=== PATIENT | male | born 1965 | race Caucasian/White ===

== ENCOUNTER 2022-12-25 16:05 | Inpatient (IN) | payer MEDICARE ==
[2022-12-25 16:24] VITALS: BMI 22.2
[2022-12-25] MEDS ORDERED: FLU VACC QS2023-24(6MOS UP)/PF 60 MCG/0.5 ML SYRINGE IM ONE (17:15)
[2022-12-25] MEDS ORDERED: Albuterol 200 PUFF (6.7GM INHALER) INH PRN (17:51)
[2022-12-25] MEDS ORDERED: Sodium Bicarbonate Tab 325 MG TAB PER TUBE PRN (19:30)
[2022-12-25] MEDS ORDERED: Pancrelipase DR 12,000 1 CAP FS PRN (19:30)
[2022-12-25] MEDS ORDERED: Budesonide 0.5 MG/2 ML NEB NEB SCH (21:00)
[2022-12-25] MEDS ORDERED: Piperacillin/Tazobactam 3.375 GM VIAL IVPB SCH (21:00)
[2022-12-25] MEDS ORDERED: TERAZOSIN HCL 1 MG PER TUBE SCH (21:00)
[2022-12-25] MEDS: Artificial Tear Sol 15 ML BOT EA EYE SCH (21:10)
[2022-12-25] MEDS: Piperacillin/Tazobactam 3.375 GM in Sodium Chloride 0.9% 100 ML IVPB SCH (21:10)
[2022-12-25] MEDS: LACOSAMIDE 10 MG/ML PER TUBE SCH (21:11)
[2022-12-25] MEDS: CIPROFLOXACIN 0.2% EA EAR SCH (21:11)
[2022-12-25] MEDS: oxyCODONE 5 MG TAB PER TUBE SCH (21:11)
[2022-12-25] MEDS: Budesonide 0.5 MG/2 ML NEB NEB SCH (21:11)
[2022-12-25] MEDS: Melatonin 3 MG TAB PER TUBE SCH (21:11)
[2022-12-25] MEDS: Venlafaxine HCl 37.5 MG TAB PER TUBE SCH (21:12)
[2022-12-25] MEDS: Baclofen 10 MG TAB PER TUBE SCH (21:12)
[2022-12-25] MEDS: Metoclopramide 10 MG/10 ML UDCUP PER TUBE SCH (21:13)
[2022-12-25] MEDS: levETIRAcetam 500 mg/5 ml Oral Solution PER TUBE SCH (21:14)
[2022-12-26] MEDS: oxyCODONE 5 MG TAB PER TUBE SCH ×6 (01:00→20:35)
[2022-12-26] MEDS: Acetaminophen 325 MG TAB PER TUBE SCH ×4 (01:00→16:59)
[2022-12-26] MEDS: Piperacillin/Tazobactam 3.375 GM in Sodium Chloride 0.9% 100 ML IVPB SCH ×3 (05:13→20:37)
[2022-12-26] MEDS: levETIRAcetam 500 mg/5 ml Oral Solution PER TUBE SCH ×2 (08:27→20:37)
[2022-12-26] MEDS: Artificial Tear Sol 15 ML BOT EA EYE SCH ×2 (08:28→20:36)
[2022-12-26] MEDS: Baclofen 10 MG TAB PER TUBE SCH ×2 (08:28→20:36)
[2022-12-26] MEDS: Tamsulosin HCl 0.4 MG CAP PO SCH (08:28)
[2022-12-26] MEDS: Lansoprazole 3 MG/ML ORAL SUSPENSION PER TUBE SCH (08:28)
[2022-12-26] MEDS: Metoclopramide 10 MG/10 ML UDCUP PER TUBE SCH ×4 (08:28→20:36)
[2022-12-26] MEDS: Venlafaxine HCl 37.5 MG TAB PER TUBE SCH ×2 (08:28→20:35)
[2022-12-26] MEDS: Budesonide 0.5 MG/2 ML NEB NEB SCH ×2 (08:28→20:34)
[2022-12-26] MEDS: CIPROFLOXACIN 0.2% EA EAR SCH (08:30)
[2022-12-26] MEDS: LACOSAMIDE 10 MG/ML PER TUBE SCH ×2 (08:30→20:37)
[2022-12-26] MEDS ORDERED: Lorazepam 2 MG/ML VIAL SLOW IVP PRN (10:24)
[2022-12-26] MEDS ORDERED: Ciprofloxacin 0.3% Ophth Soln 2.5 ml Bottle EA EAR SCH (11:00)
[2022-12-26] MEDS ORDERED: LACOSAMIDE 10 MG/ML PER TUBE SCH (13:45)
[2022-12-26] MEDS: Melatonin 3 MG TAB PER TUBE SCH (20:35)
[2022-12-26] MEDS: Terazosin HCl 1 MG CAP PER TUBE SCH (20:35)
[2022-12-26] MEDS: Ciprofloxacin 0.3% Ophth Soln 2.5 ml Bottle EA EAR SCH (20:36)
[2022-12-27] MEDS: oxyCODONE 5 MG TAB PER TUBE SCH ×6 (00:39→20:45)
[2022-12-27] MEDS: Acetaminophen 325 MG TAB PER TUBE SCH ×4 (00:40→17:35)
[2022-12-27] MEDS: Piperacillin/Tazobactam 3.375 GM in Sodium Chloride 0.9% 100 ML IVPB SCH ×3 (05:17→20:46)
[2022-12-27] MEDS: Metoclopramide 10 MG/10 ML UDCUP PER TUBE SCH ×4 (09:52→20:45)
[2022-12-27] MEDS: Venlafaxine HCl 37.5 MG TAB PER TUBE SCH ×2 (09:52→20:45)
[2022-12-27] MEDS: LACOSAMIDE 10 MG/ML PER TUBE SCH ×2 (09:54→20:45)
[2022-12-27] MEDS: levETIRAcetam 500 mg/5 ml Oral Solution PER TUBE SCH ×2 (09:54→20:45)
[2022-12-27] MEDS: Tamsulosin HCl 0.4 MG CAP PO SCH (09:54)
[2022-12-27] MEDS: Budesonide 0.5 MG/2 ML NEB NEB SCH ×2 (09:54→20:48)
[2022-12-27] MEDS: Baclofen 10 MG TAB PER TUBE SCH ×2 (09:54→20:45)
[2022-12-27] MEDS: Lansoprazole 3 MG/ML ORAL SUSPENSION PER TUBE SCH (09:54)
[2022-12-27] MEDS: Ciprofloxacin 0.3% Ophth Soln 2.5 ml Bottle EA EAR SCH ×2 (09:56→20:44)
[2022-12-27] MEDS: Artificial Tear Sol 15 ML BOT EA EYE SCH ×2 (09:56→20:45)
[2022-12-27] MEDS: Terazosin HCl 1 MG CAP PER TUBE SCH (20:45)
[2022-12-27] MEDS: Melatonin 3 MG TAB PER TUBE SCH (20:46)
[2022-12-28] MEDS: Acetaminophen 325 MG TAB PER TUBE SCH ×4 (00:46→17:41)
[2022-12-28] MEDS: oxyCODONE 5 MG TAB PER TUBE SCH ×6 (00:47→20:14)
[2022-12-28] MEDS: Piperacillin/Tazobactam 3.375 GM in Sodium Chloride 0.9% 100 ML IVPB SCH ×3 (04:31→20:16)
[2022-12-28] MEDS: Ciprofloxacin 0.3% Ophth Soln 2.5 ml Bottle EA EAR SCH ×2 (08:55→20:15)
[2022-12-28] MEDS: Artificial Tear Sol 15 ML BOT EA EYE SCH ×2 (08:55→20:15)
[2022-12-28] MEDS: Budesonide 0.5 MG/2 ML NEB NEB SCH ×2 (08:55→20:15)
[2022-12-28] MEDS: levETIRAcetam 500 mg/5 ml Oral Solution PER TUBE SCH ×2 (10:05→20:15)
[2022-12-28] MEDS: Tamsulosin HCl 0.4 MG CAP PO SCH (10:05)
[2022-12-28] MEDS: Venlafaxine HCl 37.5 MG TAB PER TUBE SCH ×2 (10:05→20:16)
[2022-12-28] MEDS: Metoclopramide 10 MG/10 ML UDCUP PER TUBE SCH ×4 (10:06→20:16)
[2022-12-28] MEDS: Baclofen 10 MG TAB PER TUBE SCH ×2 (10:06→20:15)
[2022-12-28] MEDS: Lansoprazole 3 MG/ML ORAL SUSPENSION PER TUBE SCH (10:06)
[2022-12-28] MEDS: LACOSAMIDE 10 MG/ML PER TUBE SCH ×2 (10:07→20:16)
[2022-12-28] MEDS: Melatonin 3 MG TAB PER TUBE SCH (20:16)
[2022-12-28] MEDS: Terazosin HCl 1 MG CAP PER TUBE SCH (20:16)
[2022-12-29] MEDS: Acetaminophen 325 MG TAB PER TUBE SCH ×5 (00:20→23:44)
[2022-12-29] MEDS: oxyCODONE 5 MG TAB PER TUBE SCH ×4 (00:20→14:53)
[2022-12-29] MEDS: Piperacillin/Tazobactam 3.375 GM in Sodium Chloride 0.9% 100 ML IVPB SCH ×3 (05:08→20:43)
[2022-12-29] MEDS: Artificial Tear Sol 15 ML BOT EA EYE SCH ×2 (08:20→20:48)
[2022-12-29] MEDS: Budesonide 0.5 MG/2 ML NEB NEB SCH ×2 (08:21→20:41)
[2022-12-29] MEDS: Ciprofloxacin 0.3% Ophth Soln 2.5 ml Bottle EA EAR SCH ×2 (08:21→20:48)
[2022-12-29] MEDS: Tamsulosin HCl 0.4 MG CAP PO SCH (09:59)
[2022-12-29] MEDS: Metoclopramide 10 MG/10 ML UDCUP PER TUBE SCH ×4 (09:59→20:49)
[2022-12-29] MEDS: levETIRAcetam 500 mg/5 ml Oral Solution PER TUBE SCH ×2 (09:59→20:48)
[2022-12-29] MEDS: Baclofen 10 MG TAB PER TUBE SCH ×2 (09:59→20:49)
[2022-12-29] MEDS: Venlafaxine HCl 37.5 MG TAB PER TUBE SCH ×2 (09:59→20:49)
[2022-12-29] MEDS: LACOSAMIDE 10 MG/ML PER TUBE SCH ×2 (10:00→20:48)
[2022-12-29] MEDS: Lansoprazole 3 MG/ML ORAL SUSPENSION PER TUBE SCH (10:00)
[2022-12-29] MEDS ORDERED: oxyCODONE 5 MG TAB PER TUBE PRN (15:08)
[2022-12-29] MEDS: Terazosin HCl 1 MG CAP PER TUBE SCH (20:49)
[2022-12-29] MEDS: Melatonin 3 MG TAB PER TUBE SCH (20:49)
[2022-12-30] MEDS: Piperacillin/Tazobactam 3.375 GM in Sodium Chloride 0.9% 100 ML IVPB SCH ×3 (05:00→21:17)
[2022-12-30] MEDS: Acetaminophen 325 MG TAB PER TUBE SCH ×3 (05:00→18:25)
[2022-12-30 05:26] LABS: #Basophils 0.1 thou/uL (0.0-0.2); #Eosinphils 0.5 thou/uL (0.0-0.7); #Monocytes 0.5 thou/uL (0.11-0.59); #Neutrophils 3.4 thou/uL (1.40-6.50); %Basophils 1.2 % (0.0-1.0); %Eosinophils 8.8 % (0.0-10.0); %Lymphocytes 17.6 % (21.0-51.0); %Monocytes 9.5 % (0.0-10.0); %Neutrophils 62.9 % (42.0-75.0); Hematocrit 33.7 % (42.0-52.0); Hemoglobin 11.2 g/dL (14.0-18.0); Mean Corpuscular HGB CONC 33.2 g/dL (32.0-36.0); Mean Corpuscular Hemoglobin 32.1 pg (27.0-31.0); Mean Corpuscular Volume 96.6 fl (78.0-98.0); Mean Platelet Volume 8.4 fL (7.4-10.4); Platelet Count 265 10x3/uL (130-400); RBC Distribution Width 12.6 % (11.5-14.5); Red Blood Cell (RBC) Count 3.49 mill/uL (4.70-6.10); White Blood Cell (WBC) Count 5.5 10x3/uL (4.8-10.8)
[2022-12-30 05:42] LABS: ALT (SGPT) 52 U/L (8-55); AST (SGOT) 47 U/L (5-34); Albumin 3.5 g/dL (3.5-5.0); Alkaline Phosphatase 491 U/L (40-110); Anion Gap 14 mmol/L (10-20); BUN (Urea Nitrogen) 16 mg/dL (8.4-25.7); Bilirubin, Total 0.4 mg/dL (0.2-1.2); Calc. Creatinine Clearance 116 mL/min (70-130); Carbon Dioxide 26 mmol/L (22-29); Chloride 101 mmol/L (98-107); Estimated GFR 110; Globulin 3.2 g/dL (2.4-3.5); Glucose 106 mg/dL (70-105); Potassium 4.2 mmol/L (3.5-5.1); Protein, Total 6.7 g/dL (6.0-8.3); Sodium 137 mmol/L (136-145)
[2022-12-30] MEDS: Budesonide 0.5 MG/2 ML NEB NEB SCH ×2 (08:05→21:16)
[2022-12-30] MEDS: Ciprofloxacin 0.3% Ophth Soln 2.5 ml Bottle EA EAR SCH ×2 (08:05→21:16)
[2022-12-30] MEDS: Artificial Tear Sol 15 ML BOT EA EYE SCH ×2 (08:05→21:15)
[2022-12-30] MEDS: Venlafaxine HCl 37.5 MG TAB PER TUBE SCH ×2 (09:04→21:14)
[2022-12-30] MEDS: levETIRAcetam 500 mg/5 ml Oral Solution PER TUBE SCH ×2 (09:04→21:17)
[2022-12-30] MEDS: Tamsulosin HCl 0.4 MG CAP PO SCH (09:04)
[2022-12-30] MEDS: Lansoprazole 3 MG/ML ORAL SUSPENSION PER TUBE SCH (09:04)
[2022-12-30] MEDS: Baclofen 10 MG TAB PER TUBE SCH ×2 (09:04→21:14)
[2022-12-30] MEDS: LACOSAMIDE 10 MG/ML PER TUBE SCH ×2 (09:04→21:17)
[2022-12-30] MEDS: Metoclopramide 10 MG/10 ML UDCUP PER TUBE SCH ×4 (09:04→21:17)
[2022-12-30] MEDS ORDERED: Polyethylene Glycol 3350 17 GM Packet PO PRN (10:55)
[2022-12-30] MEDS: Polyethylene Glycol 3350 17 GM Packet PER TUBE PRN ×2 (12:41→21:19)
[2022-12-30] MEDS: Melatonin 3 MG TAB PER TUBE SCH (21:14)
[2022-12-30] MEDS: Terazosin HCl 1 MG CAP PER TUBE SCH (21:14)
[2022-12-31] MEDS: Acetaminophen 325 MG TAB PER TUBE SCH (01:28)
[2022-12-31] MEDS: Piperacillin/Tazobactam 3.375 GM in Sodium Chloride 0.9% 100 ML IVPB SCH ×3 (05:18→21:56)
[2022-12-31] MEDS: Budesonide 0.5 MG/2 ML NEB NEB SCH ×2 (09:13→21:57)
[2022-12-31] MEDS: Venlafaxine HCl 37.5 MG TAB PER TUBE SCH ×2 (09:14→21:55)
[2022-12-31] MEDS: Tamsulosin HCl 0.4 MG CAP PO SCH (09:14)
[2022-12-31] MEDS: Lansoprazole 3 MG/ML ORAL SUSPENSION PER TUBE SCH (09:14)
[2022-12-31] MEDS: LACOSAMIDE 10 MG/ML PER TUBE SCH ×2 (09:14→21:57)
[2022-12-31] MEDS: Baclofen 10 MG TAB PER TUBE SCH ×2 (09:14→21:55)
[2022-12-31] MEDS: levETIRAcetam 500 mg/5 ml Oral Solution PER TUBE SCH ×2 (09:15→21:55)
[2022-12-31] MEDS: Artificial Tear Sol 15 ML BOT EA EYE SCH ×2 (09:15→21:56)
[2022-12-31] MEDS: Polyethylene Glycol 3350 17 GM Packet PER TUBE PRN ×2 (09:15→21:56)
[2022-12-31] MEDS: Metoclopramide 10 MG/10 ML UDCUP PER TUBE SCH ×4 (09:15→21:55)
[2022-12-31] MEDS: Ciprofloxacin 0.3% Ophth Soln 2.5 ml Bottle EA EAR SCH ×2 (09:15→21:57)
[2022-12-31] MEDS: Terazosin HCl 1 MG CAP PER TUBE SCH (21:55)
[2022-12-31] MEDS: Melatonin 3 MG TAB PER TUBE SCH (21:55)
[2023-01-01] MEDS: Piperacillin/Tazobactam 3.375 GM in Sodium Chloride 0.9% 100 ML IVPB SCH ×3 (05:31→20:19)
[2023-01-01] MEDS: LACOSAMIDE 10 MG/ML PER TUBE SCH ×2 (09:19→20:14)
[2023-01-01] MEDS: Metoclopramide 10 MG/10 ML UDCUP PER TUBE SCH ×4 (09:19→20:14)
[2023-01-01] MEDS: levETIRAcetam 500 mg/5 ml Oral Solution PER TUBE SCH ×2 (09:19→20:13)
[2023-01-01] MEDS: Artificial Tear Sol 15 ML BOT EA EYE SCH ×2 (09:19→20:15)
[2023-01-01] MEDS: Venlafaxine HCl 37.5 MG TAB PER TUBE SCH ×2 (09:20→20:15)
[2023-01-01] MEDS: Ciprofloxacin 0.3% Ophth Soln 2.5 ml Bottle EA EAR SCH ×2 (09:20→20:16)
[2023-01-01] MEDS: Baclofen 10 MG TAB PER TUBE SCH ×2 (09:20→20:15)
[2023-01-01] MEDS: Budesonide 0.5 MG/2 ML NEB NEB SCH ×2 (09:20→20:14)
[2023-01-01] MEDS: Tamsulosin HCl 0.4 MG CAP PO SCH (09:20)
[2023-01-01] MEDS: Lansoprazole 3 MG/ML ORAL SUSPENSION PER TUBE SCH (09:21)
[2023-01-01] MEDS: Melatonin 3 MG TAB PER TUBE SCH (20:15)
[2023-01-01] MEDS: Terazosin HCl 1 MG CAP PER TUBE SCH (20:15)
[2023-01-01 20:35] VITALS: BP 108/68; TEMP 98.1
[2023-01-02] MEDS: Ciprofloxacin 0.3% Ophth Soln 2.5 ml Bottle EA EAR SCH (08:36)
[2023-01-02] MEDS: Artificial Tear Sol 15 ML BOT EA EYE SCH (08:36)
[2023-01-02] MEDS: LACOSAMIDE 10 MG/ML PER TUBE SCH (08:38)
[2023-01-02] MEDS: Budesonide 0.5 MG/2 ML NEB NEB SCH (08:38)
[2023-01-02] MEDS: Metoclopramide 10 MG/10 ML UDCUP PER TUBE SCH (08:38)
[2023-01-02] MEDS: Lansoprazole 3 MG/ML ORAL SUSPENSION PER TUBE SCH (08:38)
[2023-01-02] MEDS: Baclofen 10 MG TAB PER TUBE SCH (08:39)
[2023-01-02] MEDS: Venlafaxine HCl 37.5 MG TAB PER TUBE SCH (08:39)
[2023-01-02] MEDS: Tamsulosin HCl 0.4 MG CAP PO SCH (08:39)
[2023-01-02] MEDS: levETIRAcetam 500 mg/5 ml Oral Solution PER TUBE SCH (08:39)
== END 2023-01-02 12:00 | disposition home or self-care (01) | DRG 871 ==
LOC: MADMS 16:05
PROVIDERS: ADMIT Family Medicine; ATTEND Emergency Medicine
DX: A41.9 Sepsis, unspecified organism (principal); G82.50 Quadriplegia, unspecified; N39.0 Urinary tract infection, site not specified; G93.40 Encephalopathy, unspecified; G40.909 Epilepsy, unspecified, not intractable, without status epilepticus; F32.A Depression, unspecified; K21.9 Gastro-esophageal reflux disease without esophagitis; Z79.899 Other long term (current) drug therapy; Z90.49 Acquired absence of other specified parts of digestive tract; Z93.1 Gastrostomy status; S06.9XAS Unspecified intracranial injury with loss of consciousness status unknown, sequela
CPT/HCPCS: 36415; 74018; 80053; 85025; 90471; 90686; G0008; J2543; J3490; J7626